=== PATIENT | male | born 1980 | race Caucasian/White ===

== ENCOUNTER 2017-08-25 23:21 | Emergency (ER) | payer SELFPAY ==
[~2017-08-25] VITALS: Ht 185.4 cm; Wt 81.6 kg
[2017-08-25 23:23] VITALS: BP 122/85
--- NOTE | 2017-08-25 23:28 | NUR ---
to lobby a/w bed, solomon juan noted
--- NOTE | 2017-08-25 23:54 | NUR ---
PT TAKEN TO OF2
--- NOTE | 2017-08-26 00:08 | NUR ---
FLU SWAB COMPLETED PLACED IN SOILED LINEN ROOM IN SPECIMEN CONTAINER
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
[2017-08-26] MEDS ORDERED: HYDROcodone/APAP 5/325 MG 1 TAB TAB PO ONE (00:25)
[2017-08-26] MEDS ORDERED: AMOXICILLIN 500 MG CAP PO ONE (00:25)
[2017-08-26] MEDS ORDERED: predniSONE 20 MG TAB PO ONE (00:25)
[2017-08-26] MEDS ORDERED: AMOXICILLIN 500 MG CAP ONE (00:39)
[2017-08-26] MEDS ORDERED: HYDROcodone/APAP 5/325 MG 1 TAB TAB ONE (00:40)
[2017-08-26] MEDS ORDERED: predniSONE 20 MG TAB ONE (00:40)
--- NOTE | 2017-08-26 00:59 | NUR ---
Patient discharged with v/s stable. Written and verbal after care instructions given and explained. Patient alert, oriented and verbalized understanding of instructions. [g ED.DCMODE] with [g ED.D/CMODE]. All questions addressed prior to discharge. ID band removed. Patient advised to follow up with PMD. Rx of [] given. Patient educated on indication of medication including possible reaction and side effects. Opportunity to ask questions provided and answered. Addendum: 08/26/17 at 0100 by MEDND Patient discharged with v/s stable. Written and verbal after care instructions given and explained. Patient alert, oriented and verbalized understanding of instructions. Ambulatory with steady gait. All questions addressed prior to discharge. ID band removed. Patient advised to follow up with PMD. Rx of NAPROXEN 500MG, AMOX 875MG, PREDNISONE 20MG given. Patient educated on indication of medication including possible reaction and side effects. Opportunity to ask questions provided and answered.
[2017-08-26 01:00] VITALS: BP 127/88
== END 2017-08-26 01:00 | disposition home or self-care (01) ==
LOC: MED 23:21
DX: J02.0 Streptococcal pharyngitis (principal)
CPT/HCPCS: 87081; 99284; J7512

== ENCOUNTER 2021-05-24 16:16 | Emergency (ER) | payer MEDICAID ==
[~2021-05-24] VITALS: Ht 185.4 cm; Wt 90.7 kg
--- NOTE | 2021-05-24 16:16 | NUR ---
BIB WHEELCHAIR TO ER BED 1
[2021-05-24 16:20] VITALS: BP 126/90
[2021-05-24] MEDS ORDERED: ONDANSETRON 4 MG/2 ML VIAL ONE (16:23)
[2021-05-24] MEDS ORDERED: MORPHINE SULFATE 4 MG/ML SYR ONE (16:23)
[2021-05-24] MEDS ORDERED: MORPHINE SULFATE 2 MG/ML SYR ONE (16:24)
[2021-05-24] MEDS ORDERED: MORPHINE SULFATE 10 MG/ML VIAL IVP ONE (16:25)
[2021-05-24] MEDS ORDERED: ONDANSETRON 4 MG/2 ML VIAL IVP ONE (16:25)
--- NOTE | 2021-05-24 16:33 | NUR ---
RAD at bedside
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
--- NOTE | 2021-05-24 16:42 | NUR ---
[place] [employer] at bedside
[2021-05-24 16:48] LABS: BASOPHILS % (AUTO) 0.4 % (0.0-2.0); EOSINOPHILS % (AUTO) 0.3 % (0.0-4.0); HEMATOCRIT 42.2 % (36-52); HEMOGLOBIN 14.1 g/dL (12.0-18.0); LYMPHOCYTES # (AUTO) 2.6 K/uL (2.0-11.5); LYMPHOCYTES % (AUTO) 37.9 % (20.5-51.1); MEAN CORPUSCULAR HEMOGLOBIN 28 pg (27-31); MEAN CORPUSCULAR HGB CONC 33 g/dL (33-37); MEAN CORPUSCULAR VOLUME 84.2 fL (80-94); MONOCYTES # (AUTO) 0.6 K/uL (0.8-1.0); MONOCYTES % (AUTO) 8.5 % (1.7-9.3); NEUTROPHILS # (AUTO) 3.6 K/uL (1.8-7.7); NEUTROPHILS % (AUTO) 52.9 % (42.2-75.2); PLATELET COUNT (AUTO) 397 K/uL (140-450); RED BLOOD CELL COUNT(AUTO) 5.01 MIL/uL (4.20-6.10); RED CELL DISTRIBUTION WIDTH 13.9 % (11.6-13.7); WHITE BLOOD COUNT (AUTO) 6.8 K/uL (4.8-10.8)
[2021-05-24] MEDS ORDERED: MORPHINE SULFATE 4 MG/ML SYR IM ONE (16:55)
[2021-05-24] MEDS ORDERED: DOPPLER MC ONE (17:11)
[2021-05-24] MEDS ORDERED: NACL 0.9% 1,000 ML IV ONE ×2 (17:15→19:20)
--- NOTE | 2021-05-24 17:22 | NUR ---
MORPHINE 10MG/ML WAS PULLED WASTED PARITAL DOSE, WRONG VIAL WAS PULLED. WASTED WITH LONG RN, UNABLE TO RETURN TO [facility].
[2021-05-24 17:24] LABS: PROTHROMBIN TIME 9.7 secs (10.8-13.4)
[2021-05-24] MEDS ORDERED: fentaNYL citrate 0.05 MG/ML VIAL IM ONE (17:30)
[2021-05-24 17:35] LABS: ALBUMIN 3.9 g/dL (3.4-5.0); ANION GAP 20.4 (8-16); CARBON DIOXIDE 20.1 mmol/L (21-32); CREATININE 1.2 mg/dL (0.6-1.3); POTASSIUM 3.5 mmol/L (3.5-5.1); TOTAL BILIRUBIN 0.3 mg/dL (0.0-1.0)
[2021-05-24] MEDS ORDERED: LIDOCAINE 2% 1000 MG/50 ML VIAL INJ ONE ×2 (17:45)
[2021-05-24] MEDS ORDERED: LIDOCAINE MPF 1% 10 MG/ML VIAL INJ ONE (17:45)
[2021-05-24] MEDS ORDERED: ceFAZolin 1,000 MG VIAL ONE ×2 (17:48→17:59)
--- NOTE | 2021-05-24 17:56 | NUR ---
MAURICE Quezada is reevaluating patient at bedside
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
--- NOTE | 2021-05-24 18:01 | NUR ---
RAD at bedside for repeat L ankle XRAU
[2021-05-24] MEDS ORDERED: LIDOCAINE 2% 100 MG/5 ML SYR IVP ONE (18:05)
[2021-05-24] MEDS ORDERED: PROPOFOL 200 MG/20 ML VIAL IV ONE (18:40)
--- NOTE | 2021-05-24 19:11 | NUR ---
DR MAR (ORTHO), DR JOHNSON, RT, EMT AND PRIMARY NURSE AT BEDSIDE FOR MODERATE SEDATION.
--- NOTE | 2021-05-24 19:18 | NUR ---
PER ERMD PT SPLINT WAS UNDONE AND RESPLINTED. PT PMCS WAS ASSESSED BEFORE AND AFTER ALL WNL. ERMD ASSESSED PT SPLINT AND WAS APPROVED.
--- NOTE | 2021-05-24 19:40 | NUR ---
REPORT RECEIVED FROM JOSE ZHOU FOR CONTINUITY OF PT CARE AT THIS TIME.
--- NOTE | 2021-05-24 19:40 | NUR ---
Report and transfer of care endorsed to JOSE Pearson.
--- NOTE | 2021-05-24 20:01 | NUR ---
PAOX4, GCS15.
--- NOTE | 2021-05-24 20:01 | NUR ---
PT LAYING IN BED LOCKED IN LOWEST POSITION W X2 SIDERAILS UP FOR PT SAFETY. PT REPORTS PAIN IMPROVEMENT TO 1/10 L ANKLE PAIN. PT DENIES ANY SOB OR OTHER SYMPTOMS. PT ABLE TO WIGGLE TOES BL FEET W CAP REFIL <3SEC, +SENSATION. PT CONNECTED TO MONITOR W VSS. PROVIDED PT W WATER AND JELLO PER OT REQUEST, OK PER ERMD.
[2021-05-24] MEDS ORDERED: HYDR-5080 PO (22:03)
[2021-05-24] MEDS ORDERED: IBUP-2809 PO (22:05)
[2021-05-24 22:25] VITALS: BP 123/85
--- NOTE | 2021-05-24 22:25 | NUR ---
Patient discharged with v/s stable. Written and verbal after care instructions given and explained. Patient alert, oriented and verbalized understanding of instructions. Ambulatory with steady gait W USE OF CRUTCHES. All questions addressed prior to discharge. ID band removed. Patient advised to follow up with PMD. Rx of NORCO, IBUPROFEN given. Patient educated on indication of medication including possible reaction and side effects. Opportunity to ask questions provided and answered.
== END 2021-05-24 22:25 | disposition home or self-care (01) ==
LOC: MED 16:16
DX: S82.852A Displaced trimalleolar fracture of left lower leg, initial encounter for closed fracture (principal); S63.005A Unspecified dislocation of left wrist and hand, initial encounter; Z79.899 Other long term (current) drug therapy; W10.9XXA Fall (on) (from) unspecified stairs and steps, initial encounter; Y93.89 Activity, other specified; Y92.89 Other specified places as the place of occurrence of the external cause; Y99.8 Other external cause status
CPT/HCPCS: 27810; 36415; 73610; 80053; 85025; 85610; 85730; 96361; 96365; 96375; 96376; 99291; J0690; J2001; J2270; J2405; J2704; J3010; J7030; Q0092; 26700; 27818